=== PATIENT | female | born 1945 | race Caucasian/White ===

== ENCOUNTER → 2016-07-06 | Day surgery (SDC) | payer OTHER ==
[~2016-07-06] VITALS: Ht 165.1 cm; Wt 91.0 kg
[~2016-07-06] MED LIST: ACETAMINOPHEN 1000 MG/100 ML VIAL IV ONE; BUPIVACAINE HCL PF 0.5% 30 ML VIAL NERV BLOCK ONE; DEXT 5%-NACL 0.45% 1000 ML INJ 1,000 ML IV SCH; FAMOTIDINE 20 MG/2 ML VIAL ONE; IBUP800T23 PO; LACTATED RINGER'S 1000 ML INJ 1,000 ML ONE; MECL25CH CHEW; MIDAZOLAM HCL 5 MG/ML VIAL (1 ML) ONE; NORC5TAB PO; ONDANSETRON HCL 4 MG/2 ML VIAL IV PUSH ONE; PROPOFOL 200 MG/20 ML AMP IV ONE; SODIUM CHLORIDE 0.9% FLUSH 5 ML FLUSH IVF PRN; SODIUM CHLORIDE 0.9% FLUSH 5 ML FLUSH IVF SCH; ceFAZolin 2 GM PREMIX 50 ML ONE
[2016-07-06 07:37] VITALS: BP 135/85; PULSE 73; RESP 20; TEMP 97.7; O2SAT 96
[2016-07-06 07:57] LABS: HEMATOCRIT 41.5 % (35.0-46.0); MEAN CELL VOLUME 84.3 FL (80.0-100.0); MEAN CORPUSCULAR HEMOGLOBIN 27.6 PG (27.0-34.0); MEAN CORPUSCULAR HGB CONC 32.7 % (32.0-36.0); PLATELET COUNT 290 TH/MM3 (150-450); RED BLOOD COUNT 4.92 MIL/MM3 (4.00-5.30); RED CELL DISTRIBUTION WIDTH 13.5 % (11.6-17.2); REVIEW FLAG FINAL; WHITE BLOOD COUNT 6.9 TH/MM3 (4.0-11.0)
[2016-07-06 08:00] VITALS: PULSE 81
--- NOTE | 2016-07-06 08:05 | HP.UPD ---
H&P Update Date: Jul 06, 2016 Note The Pre-Admit History and Physical Examination regarding the above named patient was reviewed (including, but not limited to, vital signs, medications, allergies, co-morbid conditions), and upon re-examination it is noted that: Indicated with "X" x - the patient's condition has not significantly changed since the last examination. [] - the patient's condition has changed since the last examination. Changes: Gretel Borja MD Jul 06, 2016 08:04
[2016-07-06 08:15] VITALS: PULSE 78
--- NOTE | 2016-07-06 10:33 | HHI.PR ---
Immediate Post Op Note Procedure Date: Jul 06, 2016 Pre Op Diagnosis: (1) Primary osteoarthritis of left wrist Post Op Diagnosis: (1) Primary osteoarthritis of left wrist Surgeon: Gretel Borja MD Dye Tank Tender(s): Darrell Quinn PA-C Procedure: Interposition arthroplasty, left thumb CMC joint with tendon transfer. Complications: n/a Specimen(s) removed: n/a Estimated blood loss: n/a Anesthesia: General, Regional Block Drains: None Tourniquet time (min at mmHg) 84 minutes at 220mmHg Patient to: PACU Patient Condition: Good Date/Time of Procedure: SEE SURGICAL CARE RECORD Aide Quinn Jul 06, 2016 10:33
[2016-07-06 10:40] VITALS: PULSE 74
[2016-07-06 11:15] VITALS: TEMP 97.8
[2016-07-06 12:10] VITALS: BP 125/74; PULSE 64; RESP 14; O2SAT 96
--- NOTE | 2016-07-07 19:32 | EKG ---
Date Performed: 07/06/2016 Time Performed: 07:51:58 PTAGE: 70 years EKG: Sinus rhythm . Poor R wave progression - probable normal variant Borderline ECG NO PREVIOUS TRACING DOCTOR: Prem Gonzalez Interpretating Date/Time 07/07/2016 19:32:13
--- NOTE | 2016-07-08 18:19 | MP ---
cc: LUI BORJA M.D. 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 PROCEDURE Interposition arthroplasty of left thumb CMC joint with tendon transfer. ANESTHESIA General SURGEON Dr. Lui Borja MD BUSINESS SYSTEMS LEAD Darrell Quinn PA-C INDICATIONS A 70-year-old female with severe degenerative joint disease of the left thumb CMC joint. It is quite painful and did not respond to nonoperative intervention. FINDINGS At the completion of the procedure the carpal trapezium was removed and replaced with an anchovy as well the tendon transfer which was used to recreate the ligament between the thumb and index metacarpal. TOURNIQUET TIME 84 minutes at 220 mmHg. PROCEDURE The patient was seen preoperatively where the site and side were identified and marked. The patient was then taken to the operating room and placed in the supine position. Her identity was checked against the arm and then consent form, site and side confirmed. A time-out called prior to beginning the procedure. The left upper extremity was prepped with Hibiclens and draped in usual sterile fashion. The area be incised was outlined with a marking pen as a transverse incision at the dorsal base of the left thumb CMC joint. A transverse incision was designed at the most distal volar portion of the flexor carpi radialis and wrist and 10 cm proximal to this. The arm was then exsanguinated and the tourniquet inflated to 220 mmHg. A #15 blade was used make an incision at the base of the thumb, down through skin, down to the subcutaneous tissue. Under loupe magnification using spread technique superficial vessels and nerves were identified and retracted exposing the capsule. Adjacent tendons were identified and retracted. The capsule was then incised with a new 15 blade, exposing the carpal trapezium. This was then carefully from surrounding structures using sharp osteotome. The bone itself was then removed in piecemeal using a rongeur. Once this was completed the volar base of the thumb metacarpal was removed with a rongeur. A 4-mm hole was then drilled obliquely from the dorsal aspect of the metacarpal into the joint using sequentially larger drill bits. The area was then copiously irrigated with saline. A new 15 blade was then used to make the incision at the most distal volar portion of the flexor carpi radialis in the wrist and 10 cm proximal to this. Proximally the tendon was carefully from the muscle and incised on the ulnar 50%. A tendon passer was then passed from the distal incision which was made with #15 blade and blunt dissection was used to identify the tendon sheath which was then opened proximally and distally. The tendon passer was passed from distal to proximal and the tendon was stripped 50% down to the second wound and then passed into the original wound using a right-angle clamp. The fibers were all the way to the insertion of the flexor carpi radialis in the index metacarpal. The portion of the tendon which had been stripped, was then passed through the thumb metacarpal using a Powers passer. The thumb was then pulled distally and had adducted against the index metacarpal and the tendon was then sutured to itself using 3-0 Ethibond suture material. The remainder was then wrapped around the portion coming up from the index metacarpal. This was also secured with a 3-0 Ethibond. The wound was then irrigated with saline and the capsule was closed with the 3-0 Ethibond suture material. All wounds were then cleansed and the proximal and distal two wounds were approximated at the dermal layer with 4-0 Vicryl suture material. All wounds were then approximated using Dermabond. Once the glue had dried in several layers Steri-Strips were applied. The tourniquet was then released after 84 minutes of tourniquet time. Pressure was applied. After several minutes there was no evidence of any oozing or swelling and a dressing was applied using fluffy gauze, hand wrap, a thumb spica splint. The patient was then taken from the operating room to the recovery room in satisfactory condition having tolerated the procedure well. Postoperative instructions include keeping arm elevated, keeping it clean and dry and returning in several days for followup. The patient was given a prescription for ibuprofen and [place]. In addition the patient had an upper extremity block prior to the procedure for postoperative pain. MD DRE Bagley/LILIYA /10:41 AM /6:03 PM CONG
== END | disposition home or self-care (01) ==
LOC: PHSDC 06:58
PROVIDERS: ATTEND Specialist
DX: M18.12 Unilateral primary osteoarthritis of first carpometacarpal joint, left hand (principal); M19.032 Primary osteoarthritis, left wrist; R94.31 Abnormal electrocardiogram [ECG] [EKG]
CPT/HCPCS: 01830; 25310; 25447; 64415; 85027; 93005; J0131; J0690; J2250; J2405; J7120; L3808

== ENCOUNTER 2016-07-30 11:25 | Emergency (ER) | payer OTHER ==
[~2016-07-30] VITALS: Ht 165.1 cm; Wt 93.5 kg
[~2016-07-30 11:25] MED LIST changes: -ACETAMINOPHEN 1000 MG/100 ML VIAL IV ONE; -BUPIVACAINE HCL PF 0.5% 30 ML VIAL NERV BLOCK ONE; -DEXT 5%-NACL 0.45% 1000 ML INJ 1,000 ML IV SCH; -FAMOTIDINE 20 MG/2 ML VIAL ONE; -LACTATED RINGER'S 1000 ML INJ 1,000 ML ONE; -MECL25CH CHEW; -MIDAZOLAM HCL 5 MG/ML VIAL (1 ML) ONE; -ONDANSETRON HCL 4 MG/2 ML VIAL IV PUSH ONE; -PROPOFOL 200 MG/20 ML AMP IV ONE; -SODIUM CHLORIDE 0.9% FLUSH 5 ML FLUSH IVF PRN; -SODIUM CHLORIDE 0.9% FLUSH 5 ML FLUSH IVF SCH; -ceFAZolin 2 GM PREMIX 50 ML ONE
[2016-07-30 11:34] VITALS: BP 138/87; PULSE 73; RESP 16; TEMP 98.2; O2SAT 96
[2016-07-30] MEDS ORDERED: LORazepam 2 MG/ML VIAL IV PUSH ONE (12:00)
[2016-07-30] MEDS ORDERED: MECLIZINE HCL 25 MG TAB PO ONE (12:00)
[2016-07-30 12:38] LABS: AUTOMATED NEUTROPHIL # 3.4 TH/MM3 (1.8-7.7); BASOPHIL # 0.1 TH/MM3 (0-0.2); BASOPHIL % 1.1 % (0.0-2.0); EOSINOPHIL # 0.2 TH/MM3 (0-0.4); EOSINOPHIL % 3.1 % (0.0-4.0); HEMATOCRIT 38.5 % (35.0-46.0); HEMO FLAGS DIFF FINAL; LYMPH % 35.9 % (9.0-44.0); LYMPHOCYTE # 2.3 TH/MM3 (1.0-4.8); MEAN CELL VOLUME 83.1 FL (80.0-100.0); MEAN CORPUSCULAR HEMOGLOBIN 27.9 PG (27.0-34.0); MEAN CORPUSCULAR HGB CONC 33.6 % (32.0-36.0); MONO % 7.8 % (0.0-8.0); NEUT % 52.1 % (16.0-70.0); PLATELET COUNT 269 TH/MM3 (150-450); RED BLOOD COUNT 4.63 MIL/MM3 (4.00-5.30); RED CELL DISTRIBUTION WIDTH 12.4 % (11.6-17.2); WHITE BLOOD COUNT 6.5 TH/MM3 (4.0-11.0)
--- NOTE | 2016-07-30 12:44 | PD ---
HPI Chief Complaint: Dizziness Time Seen by Provider: 11:42 Travel History International Travel<30 days: No Contact w/Intl Traveler<30days: No Traveled to known affect area: No History of Present Illness HPI This is a 70-year-old female who presents to the emergency department having woken up in the middle of the night with severe dizziness described as feeling like the room was spinning, unable to keep her balance when she was walking to the bathroom. She says she has had recurrent episodes ever since. They last for about 30-40 seconds and then subside when she sits still. When she is not moving she doesn't feel dizzy. She denies any headache, vomiting, numbness or weakness. She has no history of diabetes, hypertension or hyperlipidemia. This is never happened to her before. PFSH Past Medical History Diabetes: No Diminished Hearing: No Musculoskeletal: Yes (OSTEOARTHRITIS L THUMB) Immunizations Current: Yes Tetanus Vaccination: Unknown Influenza Vaccination: No ?: Not Menopausal: Yes Past Surgical History Abdominal Surgery: Yes (APPENDECTOMY, CHOLECYSTECTOMY) AICD: No Appendectomy: Yes Cholecystectomy: Yes Joint Replacement: No Oral Surgery: Yes (TONSILLECTOMY, DENTAL) Pacemaker: No Tonsillectomy: Yes Social History Alcohol Use: No Tobacco Use: Yes (1 ppd) Substance Use: No Allergies-Medications (Allergen,Severity, Reaction): Coded Allergies: No Known Allergies (Verified , 07/30/16) Reported Meds & Prescriptions Reported Meds & Active Scripts Active No Active Prescriptions or Reported Medications Review of Systems Except as stated in HPI: all other systems reviewed are Neg Physical Exam Narrative GENERAL:Well appearing, no acute distress SKIN: Focused skin assessment warm and dry. HEAD: Atraumatic. Normocephalic. EYES: Pupils equal and round. No injection or drainage. ENT: Moist mucous membranes NECK: Trachea midline. CARDIOVASCULAR: Regular rate and rhythm. No murmur appreciated. RESPIRATORY: Clear to auscultation. Breath sounds equal bilaterally. GASTROINTESTINAL: Abdomen soft, non-tender, nondistended. MUSCULOSKELETAL: No obvious deformities. NEUROLOGICAL: Awake and alert. abnormal [place]-Hallpike to the left. No obvious cranial nerve deficits. No dysarthria or aphasia. No upper or lower extremity drift. No upper extremity ataxia. PSYCHIATRIC: Appropriate mood and affect; insight and judgment normal. Data Data Last Documented VS Vital Signs Date Time Temp Pulse Resp B/P Pulse Ox O2 Delivery O2 Flow Rate FiO2 07/30/16 12:05 Room Air 07/30/16 11:34 98.2 73 16 138/87 96 Orders Complete Blood Count With Diff (07/30/16 11:54) Comprehensive Metabolic Panel (07/30/16 11:54) Lorazepam Inj (Ativan Inj) (07/30/16 12:00) Meclizine (Antivert) (07/30/16 12:00) Labs Laboratory Tests Test 07/30/16 12:25 White Blood Count 6.5 TH/MM3 Red Blood Count 4.63 MIL/MM3 Hemoglobin 12.9 GM/DL Hematocrit 38.5 % Mean Corpuscular Volume 83.1 FL Mean Corpuscular Hemoglobin 27.9 PG Mean Corpuscular Hemoglobin 33.6 % Concent Red Cell Distribution Width 12.4 % Platelet Count 269 TH/MM3 Mean Platelet Volume 8.2 FL Neutrophils (%) (Auto) 52.1 % Lymphocytes (%) (Auto) 35.9 % Monocytes (%) (Auto) 7.8 % Eosinophils (%) (Auto) 3.1 % Basophils (%) (Auto) 1.1 % Neutrophils # (Auto) 3.4 TH/MM3 Lymphocytes # (Auto) 2.3 TH/MM3 Monocytes # (Auto) 0.5 TH/MM3 Eosinophils # (Auto) 0.2 TH/MM3 Basophils # (Auto) 0.1 TH/MM3 CBC Comment DIFF FINAL Differential Comment Sodium Level 143 MEQ/L Potassium Level 3.7 MEQ/L Chloride Level 108 MEQ/L Carbon Dioxide Level 26.9 MEQ/L Anion Gap 8 MEQ/L Blood Urea Nitrogen 18 MG/DL Creatinine 0.92 MG/DL Estimat Glomerular Filtration 61 ML/MIN Rate Random Glucose 97 MG/DL Calcium Level 8.8 MG/DL Total Bilirubin 0.4 MG/DL Aspartate Amino Transf 20 U/L (AST/SGOT) Alanine Aminotransferase 39 U/L (ALT/SGPT) Alkaline Phosphatase 70 U/L Total Protein 6.8 GM/DL Albumin 3.5 GM/DL [facility] Medical Decision Making Medical Screen Exam Complete: Yes Emergency Medical Condition: Yes Interpretation(s) Afebrile, no tachycardia, normotensive No leukocytosis Electrolytes are reassuring Differential Diagnosis Benign positional vertigo, stroke, TIA, labyrinthitis, vestibular neuritis Narrative Course This is a 70-year-old female who presents to the emergency department with dizziness. The dizziness only occurs when she moves and she is asymptomatic when she is resting. She has an abnormal [place]-Hallpike to the left. She has a normal neurologic exam with no ataxia, dysarthria or aphasia. I performed an Petra maneuver, and administered the patient Ativan and meclizine. She feels much better after treatment and is able to sit up in bed and move side to side without difficulty. I suspect this reflects benign positional paroxysmal vertigo. Patient will be discharged with meclizine and was told to follow up with her primary care physician in one week if her symptoms don't improve. I did consider stroke however given the patient's symptoms are intermittent, elicited by position, and she has normal neurologic exam I don't think further imaging is warranted at this time. Diagnosis Primary Impression: Benign paroxysmal positional vertigo of left ear Patient Instructions: General Instructions Additional Instructions: If you develop severe worsening headache, persistent vomiting, numbness, weakness, difficulty walking or difficulty talking return to the emergency department immediately. Med/Other Pt SpecificInfo: Prescription(s) given Scripts Meclizine 25 Mg Chew25 Mg CHEW Q6HR PRN (VERTIGO) #15 TAB Ref 0 Prov:Mercy Solomon MD 07/30/16 Disposition: 01 DISCHARGE HOME Condition: Stable Mercy Solomon MD July 30, 2016 12:44
[2016-07-30 12:50] LABS: CHLORIDE 108 MEQ/L (98-107); POTASSIUM 3.7 MEQ/L (3.5-5.1); SODIUM (NA) 143 MEQ/L (136-145)
[2016-07-30 12:54] LABS: ANION GAP 8 MEQ/L (5-15); BICARBONATE 26.9 MEQ/L (21.0-32.0); BLOOD UREA NITROGEN 18 MG/DL (7-18)
[2016-07-30 12:57] LABS: ALT (GPT) 39 U/L (10-53); AST (GOT) 20 U/L (15-37); GLOMERULAR FILTRATION RATE 61 ML/MIN (>89)
[2016-07-30 12:59] LABS: TOTAL BILIRUBIN ADULT 0.4 MG/DL (0.2-1.0)
[2016-07-30 13:00] LABS: ALKALINE PHOSPHATASE 70 U/L (45-117)
[2016-07-30] MEDS ORDERED: MECL25CH CHEW (13:10)
[2016-07-30 13:32] VITALS: BP 148/67
== END 2016-07-30 13:35 | disposition home or self-care (01) ==
LOC: PHED 11:25
DX: H81.12 Benign paroxysmal vertigo, left ear (principal); F17.210 Nicotine dependence, cigarettes, uncomplicated
CPT/HCPCS: 80053; 85025; 96374; 99284; J2060

== ENCOUNTER → 2017-01-28 | Outpatient (CLI) | payer OTHER ==
[~2017-01-28] MED LIST changes: +ASPI-146 PO; +COMMODE 3-IN-11 MIS; +ENOX40IN SQ; -IBUP800T23 PO; +MECL25CH CHEW; +MOBI15TA PO; +WALKER WHEELS/F1 MIS
== END ==
LOC: CPRE 11:57
PROVIDERS: ATTEND Orthopaedic Surgery
DX: M16.11 Unilateral primary osteoarthritis, right hip (principal)

== ENCOUNTER 2017-02-13 05:30 | Inpatient (IN) | payer OTHER, MEDICARE ==
[~2017-02-13] VITALS: Ht 165.1 cm; Wt 92.7 kg
[~2017-02-13 05:30] MED LIST changes: -ASPI-146 PO; -COMMODE 3-IN-11 MIS; -ENOX40IN SQ; -MECL25CH CHEW; -NORC5TAB PO; -WALKER WHEELS/F1 MIS
[2017-02-13] MEDS ORDERED: POVIDONE IODINE 5% (ANTISEPSIS KIT) 4 APPLICATIONS EACH NARE PRN (06:15)
[2017-02-13] MEDS ORDERED: SODIUM CHLORID 0.9% 500 ML IV PRN (06:15)
[2017-02-13] MEDS ORDERED: EXPAREL PERI-ARTICULAR INJECTION (TOTAL VOL. 60 ML) P-ARTICULR SCH ×2 (06:15)
[2017-02-13] MEDS ORDERED: CHLORHEXIDINE GLUCONATE 2 % 1 PACK (2 CLOTHS) TOPICAL PRN (06:15)
[2017-02-13] MEDS ORDERED: LACTATED RINGER'S 1000 ML IV PRN (06:15)
[2017-02-13] MEDS ORDERED: DEXAMETHASONE SOD PHOS 20 MG/5 ML VIAL IV SCH (06:15)
[2017-02-13] MEDS ORDERED: TRANEXAMIC ACID IV SCH ×2 (06:15→10:00)
[2017-02-13] MEDS ORDERED: VANCOMYCIN 1000 MG/NS 250 ML (for <70 kg) IV SCH ×2 (06:15)
[2017-02-13] MEDS ORDERED: METOPROLOL TARTRATE 25 MG TAB PO PRN (06:15)
[2017-02-13] MEDS ORDERED: POVIDONE IODINE 7.5% SCRUB 118 ML BOTTLE TOPICAL SCH (06:15)
[2017-02-13] MEDS ORDERED: SODIUM CHLORIDE 0.9% IV SCH ×2 (06:15→10:00)
[2017-02-13] MEDS ORDERED: ceFAZolin 2 GM PREMIX 50 ML IV SCH (06:15)
--- NOTE | 2017-02-13 06:47 | HHI.DCPOC ---
Discharge Care Plan Diagnosis: (1) Osteoarthritis of right hip (2) Status post total hip replacement, right Your Health Problems Are: Difficulty with ADL Goals to Promote Your Health * To prevent worsening of your condition and complications * To maintain your health at the optimal level Directions to Meet Your Goals Take your medications as prescribed Follow your dietary instruction Follow activity as directed Keep your appointments as scheduled Take your immunizations and boosters as scheduled If your symptoms worsen call your PCP, if no PCP go to Urgent Care Center or Emergency Room Smoking is Dangerous to Your Health. Avoid second hand smoke Call the 24-hour hour crisis hotline for domestic abuse at Volodymyr Stewart Feb 13, 2017 06:47
--- NOTE | 2017-02-13 06:48 | HHI.FF ---
Face to Face Verification Diagnosis: (1) Osteoarthritis of right hip (2) Status post total hip replacement, right Physical Therapy Gait training, Transfer training, bed to chair Hip: Total hip Right LE Weight Bearing: WB as tolerated Right LE Range of Motion: Active ROM Nursing Nursing: Homero kim Dressing Changes: Do not change dressing Additional Instructions First dressing change in office I have seen patient Tracey Diamond on 02/13/17. My clinical findings support the need for the requested home health care services because: Limited ability to care for self High risk of falls I certify that my clinical findings support that this patient is homebound because: Post-op weakness Unsteady gait/balance Volodymyr Stewart Feb 13, 2017 06:48
[2017-02-13] MEDS ORDERED: COMMODE 3-IN-11 MIS (06:50)
[2017-02-13] MEDS ORDERED: WALKER WHEELS/F1 MIS (06:50)
[2017-02-13] MEDS ORDERED: GENTAMICIN SULFATE 80 MG/2 ML VIAL IRRIGATION ONE (07:40)
--- NOTE | 2017-02-13 08:57 | PD.OP ---
cc: Jf Sanchez MD Operative Report Date of Surgery: Feb 13, 2017 Preoperative Diagnosis: Right hip severe osteoarthritis Postoperative Diagnosis: Same Procedure: Right total hip arthroplasty Anesthesia: Gen. Surgeon: Jf Sanchez Grounds Person(s): RUDI Phipps The surgical procedure was assisted by my Advanced Registered Nurse Practitioner. My FIRE PILOT presence was necessary throughout this case for the manipulation and positioning of the surgical extremity. My FIRE PILOT was assisting me throughout the duration of this procedure. The skill set of an Advance Registered Nurse Practitioner was medically necessary to complete this procedure. During the surgical case, the manager surgical was working at the back table and the Advance Registered Nurse Practitioner was directly assisting me. Operation and Findings: IMPLANT DESCRIPTION: 1. [place] Gription Cup, acetabular size 50. 2. [place] AltrX polyethylene, neutral. 4. [place] femoral stem size , with collar, KLA high offset, size 9. 5. Femoral head/neck metal, 32, +5. ESTIMATED BLOOD LOSS: 300 cc. JUSTIFICATION FOR PROCEDURE: The patient has end-stage osteoarthritis to the hip. There is an attached conservative measures pathway form in the chart that describes the nonoperative measures that were undertaken prior to consideration of surgical management. The patient understood the risks and benefits of surgical management. See my office notes for further details. PROCEDURE: The patient was brought back to the operative theatre. Adequate anesthesia was obtained. The patient received intravenous vancomycin and Ancef. The patient was carefully placed on the operative table. The lower extremity was prepped and draped in the usual sterile fashion. Fluoroscopic images were obtained. We made a standard anterior incision over the hip. We dissected through the TFL fascia, exposing the anterior capsule. Arthrotomy was performed in a T-shaped fashion. The capsule was tagged with a #2 FiberWire. End-stage arthritis was identified. Osteotomy was performed through the femoral neck exposing the acetabulum. Remnants of the labrum were resected and osteophytes were removed. We sequentially reamed the acetabulum. We trialed the hip and placed the final cup into position. This was done under fluoroscopic guidance to obtain the appropriate inclination and anteversion. A manhole cover was placed into the acetabular component. We then placed the final polyethylene into position and confirmed that it was well seated. Capsular attachments on the calcar and the inner aspect of the greater trochanter were resected. On the proximal aspect of the femur we used a rongeur , box osteotome, canal finder, sequential broaches and lateralizing rasp. We calcar planed the proximal femur. Then thoroughly irrigated the wound. We trialed the hip with the appropriate size stem. We placed the final stem in to position and trialed again. The hip was stable while it was externally rotated 70 degrees when the leg was lowered to the floor. The final head was applied, and final fluoroscopic images were obtained. The wound was thoroughly irrigated again. Interarticular injection of liposomal bupivacaine was given. The capsule was closed with #2 FiberWire and #1 Vicryl. The deep fascia was closed with a #2 Stratafix, followed by 2-0 Vicryl in the skin and Dermabond dressing. Postop plan is to weight-bear as tolerated. DVT prophylaxis will be performed with Alice, PEGGY carter, early mobilization, and Lovenox followed by aspirin. Jf Sanchez MD Feb 13, 2017 08:57
[2017-02-13] MEDS ORDERED: NORC5TAB PO (08:59)
[2017-02-13] MEDS ORDERED: ASPI-146 PO (08:59)
[2017-02-13] MEDS ORDERED: ENOX40IN SQ (08:59)
[2017-02-13] MEDS ORDERED: ACETAMINOPHEN/HYDROcodone 325 MG/5 MG TAB PO PRN (09:00)
[2017-02-13] MEDS ORDERED: ZOLPIDEM TARTRATE 5 MG TAB PO PRN (09:00)
[2017-02-13] MEDS ORDERED: ALUMINUM/MAGNESIUM/SIMETH 30 ML CUP PO PRN (09:00)
[2017-02-13] MEDS ORDERED: diphenhydrAMINE HCL 50 MG/ML VIAL IV PUSH PRN (09:00)
[2017-02-13] MEDS ORDERED: BISACODYL 10 MG SUPP RECTAL PRN (09:00)
[2017-02-13] MEDS ORDERED: NALOXONE HCL 0.4 MG/ML AMP IV PUSH PRN (09:00)
[2017-02-13] MEDS ORDERED: ONDANSETRON HCL 4 MG/2 ML VIAL IVP PRN (09:00)
[2017-02-13] MEDS ORDERED: MAGNESIUM HYDROXIDE SUSP 30 ML CUP PO PRN (09:00)
[2017-02-13] MEDS ORDERED: MORPHINE SULFATE 4 MG/ML INJ IV PUSH PRN (09:00)
[2017-02-13] MEDS ORDERED: Post-op Orders (for Pharmacy) MISC XX ONE (09:00)
--- NOTE | 2017-02-13 09:09 | RADRPT ---
EXAM DATE/TIME: 02/13/2017 07:18 [facility] COMPARISON: No previous studies available for comparison. INDICATIONS : Post-op total right hip arthroplasty. MEDICAL HISTORY : None. SURGICAL HISTORY : None. ENCOUNTER: Initial ACUITY: 1 day PAIN SCORE: Non-responsive. LOCATION: Right hip. FINDINGS: A two view examination of the right hip was performed. Postsurgical changes following total hip repla cement noted. Femoral and acetabular components are well seated and satisfactorily aligned. There is no evidence of acute fracture. CONCLUSION: Satisfactory postoperative appearance of the right hip status post hip replacement. Neil Salazar MD on February 13, 2017 at 9:07 Board Certified Radiologist. This report was verified electronically.
[2017-02-13] MEDS ORDERED: DO NOT ADM ANY ANTICOAGULANT DRUGS PRN (09:24)
[2017-02-13] MEDS: SODIUM CHLOR 0.9% 1000 ML INJ 1,000 ML IV SCH ×3 (10:00→23:51)
--- NOTE | 2017-02-13 10:41 | RADRPT ---
EXAM DATE/TIME: 02/13/2017 09:38 [facility] COMPARISON: No previous studies available for comparison. INDICATIONS : Post op right hip surgery. MEDICAL HISTORY : None. SURGICAL HISTORY : None. ENCOUNTER: Initial ACUITY: 1 day PAIN SCORE: Non-responsive. LOCATION: Right hip and pelvis FINDINGS: Post surgical changes following right hip replacement are noted. Acetabular and femoral components ar e well seated and satisfactorily aligned. Bony pelvis is intact. Mild to moderate left arthropathy is noted. CONCLUSION: Satisfactory postoperative appearance of the right hip following total hip replacement. No acute bony abnormality noted. Neil Salazar MD on February 13, 2017 at 10:38 Board Certified Radiologist. This report was verified electronically.
[2017-02-13] MEDS ORDERED: LIDOCAINE HCL 1% PF 5 ML SYRINGE OTHER ONE (12:00)
[2017-02-13] MEDS ORDERED: MIDAZOLAM HCL 2 MG/2 ML VIAL IV ONE (12:00)
[2017-02-13] MEDS ORDERED: MORPHINE SULFATE 4 MG/ML INJ IV ONE (12:00)
[2017-02-13] MEDS ORDERED: PROPOFOL 200 MG/20 ML AMP IV ONE (12:00)
[2017-02-13] MEDS ORDERED: ROCURONIUM INJ 50 MG/5 ML SYRINGE IV PUSH ONE (12:00)
[2017-02-13] MEDS ORDERED: ONDANSETRON HCL 4 MG/2 ML VIAL IV ONE (12:00)
[2017-02-13 13:36] VITALS: BP 137/79; PULSE 98; RESP 18; TEMP 98; O2SAT 95
[2017-02-13] MEDS ORDERED: PROMETHAZINE HCL 25 MG TAB PO PRN (15:15)
[2017-02-13] MEDS ORDERED: METOCLOPRAMIDE HCL 10 MG/2 ML VIAL IV PUSH PRN (15:15)
--- NOTE | 2017-02-13 15:16 | PD.CONS ---
[facility] Reason for Consult medical management Primary Care Physician Lavelle Antoine MD Diagnoses: (1) Benign paroxysmal positional vertigo of left ear (2) Osteoarthritis of right hip (3) Primary osteoarthritis of left wrist (4) Status post total hip replacement, right History of Present Illness Patient is a pleasant 71 yo F without significant PMH except osteoarthritis. Patient came for elective right hops surgery by Dr Sanchez. The patient was seen in the room after the surgery. She is nauseated and vomited 3 times nonbloody nonbilious. Received Zofran however still with nausea and vomiting at this time. No fever. Denies chest pain shortness of breath. No abd pain or suprapubic pain, no urinary complaints. Review of Systems Except as stated in HPI: all other systems reviewed are Neg Past Family Social History Allergies: Coded Allergies: No Known Allergies (Verified Allergy, Unknown, 02/13/17) Past Medical History Osteoarthritis Past Surgical History Appendectomy Tonsillectomy Cholecystomy Right hand surgery Right knee lap surgery Reported Medications Last Impressions Hip and Pelvis X-Ray 02/13/17 0851 Signed Impressions: Service Date/Time: Monday, February 13, 2017 09:38 - CONCLUSION: Satisfactory postoperative appearance of the right hip following total hip replacement. No acute bony abnormality noted. Neil Salazar MD Hip X-Ray 02/13/17 0000 Signed Impressions: Service Date/Time: Monday, February 13, 2017 07:18 - CONCLUSION: Satisfactory postoperative appearance of the right hip status post hip replacement. Neil Salazar MD Family History cancer runs in family Social History Smoking 1 cigarette per day currently, used to smoke a quarter pack per week. No alcohol use or illicit drug use Physical Exam Vital Signs Vital Signs Date Time Temp Pulse Resp B/P (MAP) Pulse Ox O2 Delivery O2 Flow Rate FiO2 02/13/17 13:25 98.1 98 20 114/58 (76) 97 Nasal Cannula 2 02/13/17 12:30 99 20 120/68 (85) 97 Nasal Cannula 2 02/13/17 11:30 98 20 105/59 (74) 97 Nasal Cannula 2 02/13/17 10:30 101 20 109/58 (75) 95 Nasal Cannula 2 02/13/17 10:15 109 20 109/59 (76) 95 Nasal Cannula 2 02/13/17 10:00 102 20 116/72 (87) 96 Nasal Cannula 2 02/13/17 09:45 110 20 115/58 (77) 95 Nasal Cannula 2 02/13/17 09:25 97.4 114 20 131/69 (89) 95 Nasal Cannula 2 02/13/17 05:59 98.4 86 18 165/86 (112) 98 Physical Exam GENERAL: This is a well-nourished, well-developed patient, in some distress 2/2 nausea. SKIN: No rashes, ecchymoses or lesions. Cool and dry. HEAD: Atraumatic. Normocephalic. No temporal or scalp tenderness. EYES: Pupils equal round and reactive. Extraocular motions intact. No scleral icterus. No injection or drainage. ENT: Nose without bleeding, purulent drainage or septal hematoma. Throat without erythema, tonsillar hypertrophy or exudate. Uvula midline. Airway patent. NECK: Trachea midline. No JVD or lymphadenopathy. Supple, nontender, no meningeal signs. CARDIOVASCULAR: Regular rate and rhythm without murmurs, gallops, or rubs. RESPIRATORY: Clear to auscultation. Breath sounds equal bilaterally. No wheezes , rales, or rhonchi. GASTROINTESTINAL: Abdomen soft, non-tender, nondistended. No hepato-splenomegaly , or palpable masses. No guarding. MUSCULOSKELETAL: S/P left hip surgery dressing in place c/d/di. Extremities without clubbing, cyanosis, or edema. No joint tenderness, effusion, or edema noted. No calf tenderness. Negative Homans sign bilaterally. NEUROLOGICAL: Awake and alert. Cranial nerves II through XII intact. Motor and sensory grossly within normal limits. Five out of 5 muscle strength in all muscle groups. Normal speech. Imaging Last Impressions Hip and Pelvis X-Ray 02/13/17 0851 Signed Impressions: Service Date/Time: Monday, February 13, 2017 09:38 - CONCLUSION: Satisfactory postoperative appearance of the right hip following total hip replacement. No acute bony abnormality noted. Neil Salazar MD Hip X-Ray 02/13/17 0000 Signed Impressions: Service Date/Time: Monday, February 13, 2017 07:18 - CONCLUSION: Satisfactory postoperative appearance of the right hip status post hip replacement. Neil Salazar MD Assessment and Plan Assessment and Plan Pleasant 71-year-old female with Osteoarthritis left knee status post Left total hip arthroplasty by Dr. Sanchez Management per orthopedic doctor Pain management per orthopedics Antiemetics, laxatives/stool. Nurse as need. Add Zofran and Phenergan as patient with intractable nausea and vomiting Resume home medications as appropriate Monitor H&H Monitor vital signs DVT prophylaxis per surgeon Thank you for this consultation we'll follow along Discussed Condition With Patient, nurse, family at bedside Problem Qualifiers (1) Osteoarthritis of right hip: Qualified Codes: M16.11 - Unilateral primary osteoarthritis, right hip Nicky Khan MD Feb 13, 2017 15:16
[2017-02-13 21:39] VITALS: BP 125/62; PULSE 97; RESP 16; TEMP 98.8; O2SAT 97
[2017-02-14] VITALS (7 sets, daily range): BP systolic 107–142; BP diastolic 65–74; PULSE 70–101; RESP 16–18; TEMP 96.4–99.2; O2SAT 96–99
[2017-02-14] MEDS ORDERED: DEXAMETHASONE SOD PHOS 20 MG/5 ML VIAL IV ONE (07:45)
[2017-02-14] MEDS: ACETAMINOPHEN/HYDROcodone 325 MG/5 MG TAB PO PRN ×3 (08:06→17:08)
[2017-02-14] MEDS: ENOXAPARIN SODIUM 40 MG/0.4 ML SYRINGE SQ SCH (08:06)
[2017-02-14 09:43] LABS: HEMATOCRIT 30.5 % (35.0-46.0); MEAN CELL VOLUME 84.3 FL (80.0-100.0); MEAN CORPUSCULAR HEMOGLOBIN 28.4 PG (27.0-34.0); MEAN CORPUSCULAR HGB CONC 33.7 % (32.0-36.0); PLATELET COUNT 205 TH/MM3 (150-450); RED BLOOD COUNT 3.61 MIL/MM3 (4.00-5.30); RED CELL DISTRIBUTION WIDTH 13.4 % (11.6-17.2); REVIEW FLAG FINAL; WHITE BLOOD COUNT 9.4 TH/MM3 (4.0-11.0)
--- NOTE | 2017-02-14 10:44 | HHI.PR ---
Subjective Remarks Feels much better, ambulating with physical therapy. No nausea or vomiting. She was able to eat and keep down food. No fever or chills denies chest pain shortness of breath Objective Vitals Vital Signs Date Time Temp Pulse Resp B/P (MAP) Pulse Ox O2 Delivery O2 Flow Rate FiO2 02/14/17 08:14 Room Air 02/14/17 08:00 96.4 98 16 125/71 (89) 99 02/14/17 04:59 98.1 70 16 116/65 (82) 96 02/14/17 00:54 97.6 101 18 107/65 (79) 96 02/13/17 21:39 98.8 97 16 125/62 (83) 97 02/13/17 13:36 98.0 98 18 137/79 (98) 95 02/13/17 13:25 98.1 98 20 114/58 (76) 97 Nasal Cannula 2 02/13/17 12:30 99 20 120/68 (85) 97 Nasal Cannula 2 02/13/17 11:30 98 20 105/59 (74) 97 Nasal Cannula 2 I/O 02/13/17 02/13/17 02/13/17 02/14/17 02/14/17 02/14/17 07:00 15:00 23:00 07:00 15:00 23:00 Intake Total 1980 ml Output Total 300 ml Balance 1680 ml Intake Oral 480 ml IV Total 1500 ml Output Estimated Blood Loss 300 ml # Voids 1 Result Diagram: 02/14/17 0926 Imaging Last Impressions Hip and Pelvis X-Ray 02/13/17 0851 Signed Impressions: Service Date/Time: Monday, February 13, 2017 09:38 - CONCLUSION: Satisfactory postoperative appearance of the right hip following total hip replacement. No acute bony abnormality noted. Neil Salazar MD Hip X-Ray 02/13/17 0000 Signed Impressions: Service Date/Time: Monday, February 13, 2017 07:18 - CONCLUSION: Satisfactory postoperative appearance of the right hip status post hip replacement. Neil Salazar MD Objective Remarks GENERAL: This is a well-nourished, well-developed patient, in nad SKIN: No rashes, ecchymoses or lesions. Cool and dry. HEAD: Atraumatic. Normocephalic. No temporal or scalp tenderness. EYES: Pupils equal round and reactive. Extraocular motions intact. No scleral icterus. No injection or drainage. ENT: Nose without bleeding, purulent drainage or septal hematoma. Throat without erythema, tonsillar hypertrophy or exudate. Uvula midline. Airway patent. NECK: Trachea midline. No JVD or lymphadenopathy. Supple, nontender, no meningeal signs. CARDIOVASCULAR: Regular rate and rhythm without murmurs, gallops, or rubs. RESPIRATORY: Clear to auscultation. Breath sounds equal bilaterally. No wheezes , rales, or rhonchi. GASTROINTESTINAL: Abdomen soft, non-tender, nondistended. No hepato-splenomegaly , or palpable masses. No guarding. MUSCULOSKELETAL: S/P left hip surgery dressing in place c/d/di. Extremities without clubbing, cyanosis, or edema. No joint tenderness, effusion, or edema noted. No calf tenderness. Negative Homans sign bilaterally. NEUROLOGICAL: Awake and alert. Cranial nerves II through XII intact. Motor and sensory grossly within normal limits. Five out of 5 muscle strength in all muscle groups. Normal speech. A/P Problem List: (1) Benign paroxysmal positional vertigo of left ear ICD Code: H81.12 - Benign paroxysmal vertigo, left ear Status: Acute (2) Osteoarthritis of right hip ICD Code: M16.11 - Unilateral primary osteoarthritis, right hip (3) Primary osteoarthritis of left wrist ICD Code: M19.032 - Primary osteoarthritis, left wrist Status: Acute (4) Status post total hip replacement, right ICD Code: Z96.641 - Presence of right artificial hip joint Assessment and Plan Pleasant 71-year-old female with Osteoarthritis left knee status post Left total hip arthroplasty by Dr. Sanchez Management per orthopedic doctor Pain management per orthopedics Nausea/vomiting resolved. Antiemetics, laxatives/stool, Zofran and Phenergan as patient Resume home medications as appropriate Monitor H&H Monitor vital signs DVT prophylaxis per surgeon Thank you for this consultation we'll follow along Discussed Condition With Patient, nurse appears stable medically at this time Problem Qualifiers (1) Osteoarthritis of right hip: Qualified Codes: M16.11 - Unilateral primary osteoarthritis, right hip Nicky Khan MD Feb 14, 2017 10:44
--- NOTE | 2017-02-14 12:39 | PD.ORT.PN ---
Subjective Post Op Day #: 1 Subjective Remarks Patient is OOB in chair with mild to moderate right hip pain. Patient has been ambulatory and is unsure if she is ready for discharge home with home health today or tomorrow. Objective Vitals Vital Signs Date Time Temp Pulse Resp B/P (MAP) Pulse Ox O2 Delivery O2 Flow Rate FiO2 02/14/17 08:14 Room Air 02/14/17 08:00 96.4 98 16 125/71 (89) 99 02/14/17 04:59 98.1 70 16 116/65 (82) 96 02/14/17 00:54 97.6 101 18 107/65 (79) 96 02/13/17 21:39 98.8 97 16 125/62 (83) 97 02/13/17 13:36 98.0 98 18 137/79 (98) 95 02/13/17 13:25 98.1 98 20 114/58 (76) 97 Nasal Cannula 2 I/O 02/13/17 02/13/17 02/13/17 02/14/17 02/14/17 02/14/17 07:00 15:00 23:00 07:00 15:00 23:00 Intake Total 1980 ml Output Total 300 ml Balance 1680 ml Intake Oral 480 ml IV Total 1500 ml Output Estimated Blood Loss 300 ml # Voids 1 Result Diagram: 02/14/17 0926 Procedures Right CARLOS Objective Remarks The patient's dressing is C/D/I. EHL/TA/G intact. 2+ pedal pulse. Calf is soft and nontender. + SILT. Assessment & Plan Ortho Post Op Day #: 1 Problem List: Assessment and Plan POD #1: Right CARLOS 1. Lovenox followed by ASA for DVT prophylaxis 2. WBAT RLE 3. Ice to the right hip PRN 4. Stable for discharge home with home health today or tomorrow. 5. F/U with Dr. Sanchez or Leonides GRIJALVA in the office as previously scheduled. Volodymyr Stewart Feb 14, 2017 12:39
[2017-02-14] MEDS: SODIUM CHLOR 0.9% 1000 ML INJ 1,000 ML IV SCH (14:51)
[2017-02-14] MEDS: MULTIVITAMINS/MINERALS THERAPEUTIC TAB PO SCH (20:58)
[2017-02-14] MEDS: DOCUSATE SODIUM 100 MG CAP PO SCH (20:58)
[2017-02-15] VITALS: BP 139/83; PULSE 84; RESP 18; TEMP 98.4; O2SAT 97
[2017-02-15] MEDS: SODIUM CHLOR 0.9% 1000 ML INJ 1,000 ML IV SCH (00:51)
[2017-02-15 07:40] VITALS: BP 133/80; PULSE 91; RESP 17; TEMP 98.1; O2SAT 95
[2017-02-15 08:24] LABS: MEAN CELL VOLUME 83.2 FL (80.0-100.0); MEAN CORPUSCULAR HEMOGLOBIN 28.3 PG (27.0-34.0); PLATELET COUNT 213 TH/MM3 (150-450); RED BLOOD COUNT 3.36 MIL/MM3 (4.00-5.30); RED CELL DISTRIBUTION WIDTH 13.2 % (11.6-17.2); REVIEW FLAG FINAL; WHITE BLOOD COUNT 11.3 TH/MM3 (4.0-11.0)
[2017-02-15] MEDS: DOCUSATE SODIUM 100 MG CAP PO SCH (08:48)
[2017-02-15] MEDS: ENOXAPARIN SODIUM 40 MG/0.4 ML SYRINGE SQ SCH (08:48)
[2017-02-15] MEDS: MULTIVITAMINS/MINERALS THERAPEUTIC TAB PO SCH (08:48)
[2017-02-15] MEDS: ACETAMINOPHEN/HYDROcodone 325 MG/5 MG TAB PO PRN (08:49)
--- NOTE | 2017-02-15 08:52 | HHI.PR ---
Subjective Remarks Eating breakfast. Pain is controlled by meds. Did not have a BM yet will add lactulose. No n/v/d/c. Denies chest pain or sob. Tolerates well PT and plan to go home today after has a BM Objective Vitals Vital Signs Date Time Temp Pulse Resp B/P (MAP) Pulse Ox O2 Delivery O2 Flow Rate FiO2 02/15/17 07:40 98.1 91 17 133/80 (97) 95 02/15/17 00:00 98.4 84 18 139/83 (101) 97 02/14/17 21:25 21 02/14/17 21:00 Room Air 02/14/17 20:00 98.0 90 17 120/74 (89) 96 02/14/17 16:00 96.4 99 16 142/74 (96) 97 02/14/17 14:41 98 02/14/17 12:00 99.2 76 16 120/73 (89) 99 I/O 02/14/17 02/14/17 02/14/17 02/15/17 02/15/17 02/15/17 07:00 15:00 23:00 07:00 15:00 23:00 Intake Total 1320 ml 480 ml Balance 1320 ml 480 ml Intake Oral 1320 ml 480 ml # Voids 3 1 Result Diagram: 02/15/17 0750 Imaging Last Impressions Hip and Pelvis X-Ray 02/13/17 0851 Signed Impressions: Service Date/Time: Monday, February 13, 2017 09:38 - CONCLUSION: Satisfactory postoperative appearance of the right hip following total hip replacement. No acute bony abnormality noted. Neil Salazar MD Hip X-Ray 02/13/17 0000 Signed Impressions: Service Date/Time: Monday, February 13, 2017 07:18 - CONCLUSION: Satisfactory postoperative appearance of the right hip status post hip replacement. Neil Salazar MD Objective Remarks GENERAL: This is a well-nourished, well-developed patient, in nad SKIN: No rashes, ecchymoses or lesions. Cool and dry. HEAD: Atraumatic. Normocephalic. No temporal or scalp tenderness. EYES: Pupils equal round and reactive. Extraocular motions intact. No scleral icterus. No injection or drainage. ENT: Nose without bleeding, purulent drainage or septal hematoma. Throat without erythema, tonsillar hypertrophy or exudate. Uvula midline. Airway patent. NECK: Trachea midline. No JVD or lymphadenopathy. Supple, nontender, no meningeal signs. CARDIOVASCULAR: Regular rate and rhythm without murmurs, gallops, or rubs. RESPIRATORY: Clear to auscultation. Breath sounds equal bilaterally. No wheezes , rales, or rhonchi. GASTROINTESTINAL: Abdomen soft, non-tender, nondistended. No hepato-splenomegaly , or palpable masses. No guarding. MUSCULOSKELETAL: S/P left hip surgery dressing in place c/d/di. Extremities without clubbing, cyanosis, or edema. No joint tenderness, effusion, or edema noted. No calf tenderness. Negative Homans sign bilaterally. NEUROLOGICAL: Awake and alert. Cranial nerves II through XII intact. Motor and sensory grossly within normal limits. Five out of 5 muscle strength in all muscle groups. Normal speech. A/P Problem List: (1) Benign paroxysmal positional vertigo of left ear ICD Code: H81.12 - Benign paroxysmal vertigo, left ear Status: Acute (2) Osteoarthritis of right hip ICD Code: M16.11 - Unilateral primary osteoarthritis, right hip (3) Primary osteoarthritis of left wrist ICD Code: M19.032 - Primary osteoarthritis, left wrist Status: Acute (4) Status post total hip replacement, right ICD Code: Z96.641 - Presence of right artificial hip joint Assessment and Plan Pleasant 71-year-old female with Osteoarthritis left knee status post Left total hip arthroplasty by Dr. Sanchez Management per orthopedic doctor Pain management per orthopedics Nausea/vomiting resolved. Antiemetics, laxatives/stool, Zofran and Phenergan as patient Resume home medications as appropriate Monitor H&H Monitor vital signs Constipation on bowel regimen, add lactulose DVT prophylaxis per surgeon Thank you for this consultation we'll follow along Discussed Condition With Patient, nurse appears stable medically at this time, can DC after has a BM Problem Qualifiers (1) Osteoarthritis of right hip: Qualified Codes: M16.11 - Unilateral primary osteoarthritis, right hip Nicky Khan MD Feb 15, 2017 08:52
[2017-02-15] MEDS ORDERED: LACTULOSE SYRUP 20 GM/30 ML CUP PO ONE (09:45)
--- NOTE | 2017-02-15 23:23 | HHI.DS ---
Discharge Summary Admission Date Feb 13, 2017 at 05:30 Discharge Date: Feb 15, 2017 Admitting Diagnosis OA of the right hip Status post total hip replacement, right Diagnosis: (1) Primary osteoarthritis of left wrist Diagnosis: Principal ICD Codes: M19.032 - Primary osteoarthritis, left wrist Status: Acute (2) Status post total hip replacement, right Diagnosis: Principal ICD Codes: Z96.641 - Presence of right artificial hip joint Procedures Right CARLOS Brief History This is a 71 year old female patient with severe OA of the right hip CBC/BMP: 02/15/17 0750 Significant Findings Laboratory Tests Test 02/14/17 09:26 02/15/17 07:50 Red Blood Count 3.61 MIL/MM3 (4.00-5.30) 3.36 MIL/MM3 (4.00-5.30) Hemoglobin 10.2 GM/DL (11.6-15.3) 9.5 GM/DL (11.6-15.3) Hematocrit 30.5 % (35.0-46.0) 28.0 % (35.0-46.0) White Blood Count 11.3 TH/MM3 (4.0-11.0) PE at Discharge The patient's dressing is C/D/I. EHL/TA/G intact. 2+ pedal pulse. Calf is soft and nontender. + SILT. Hospital Course The patient was admitted to the hospital for severe OA of the right hip to have a right CARLOS. The patient's surgery went well with no complications. The patient is WBAT. The patient was placed on Lovenox followed by ASA for DVT prophylaxis. The patient is on a regular diet. The patient was discharged home with home health and will f/u with Dr. Sanchez or RUDI Evans as previously scheduled. Pt Condition on Discharge: Stable Discharge Disposition: Disch w/ Home Health Serv Discharge Instructions Diet Instructions: As Tolerated, No Restrictions Activities You Can Perform: Weight Bearing as Tone Activities to Avoid: Strenuous Activity Follow up Referrals: Orthopedics with Jf Sanchez MD SN[facility]/ with N[employer]SE [employer] - [phone] New Medications: Aspirin (Ecotrin Regular Strength) 325 Mg Tabdr 325 MG PO DAILY for Prevent Blood Clot, #30 TAB 0 Refills Start Aspirin after Lovenox is completed. Commode 3-in-1 (Commode 3-in-1) 1 Mis Mis EA .ROUTE DIRECTED, #1 0 Refills Enoxaparin Inj (Enoxaparin Inj) 40 Mg/0.4 Ml Syr 40 MG SQ DAILY for Blood Clot Prevention, #10 SYRINGE 0 Refills Start Aspirin after Lovenox is completed. Hydrocodone-Acetaminophen ([place]) 5 Mg-325 Mg Tab 1-2 TAB PO Q4H PRN for PAIN, #60 TAB 0 Refills Walker with Front Wheels (Walker with Front Wheels) 1 Mis Mis EA .ROUTE DIRECTED, #1 0 Refills Discontinued Medications: Meloxicam (Mobic) 15 Mg Tab 15 MG PO DAILY, TAB 0 Refills Volodymyr Stewart Feb 15, 2017 23:23
== END 2017-02-15 10:51 | disposition home health service (06) | DRG 470 ==
LOC: HSDI 05:30 → N06A 13:37
PROVIDERS: ADMIT Orthopaedic Surgery; ATTEND Orthopaedic Surgery
PROC: 0SR902A Replacement of Right Hip Joint with Metal on Polyethylene Synthetic Substitute, Uncemented, Open Approach (ICD-10-PCS; principal; 2017-02-13 06:44)
DX: M16.11 Unilateral primary osteoarthritis, right hip (principal); Z96.642 Presence of left artificial hip joint; F17.210 Nicotine dependence, cigarettes, uncomplicated; H81.12 Benign paroxysmal vertigo, left ear; M19.032 Primary osteoarthritis, left wrist; R11.2 Nausea with vomiting, unspecified; K59.00 Constipation, unspecified
CPT/HCPCS: 73502; 76000; 85027; 86850; 86900; 86901; C1776; C9290; J0690; J1100; J1580; J1650; J2250; J2270; J2405; J3010; J3370; J7030; J7050; J7120

== ENCOUNTER 2017-03-16 11:06 | Emergency (ER) | payer OTHER ==
[~2017-03-16] VITALS: Ht 165.1 cm; Wt 94.7 kg
[~2017-03-16 11:06] MED LIST changes: +ASPI-146 PO; +COMMODE 3-IN-11 MIS; +ENOX40IN SQ; -MOBI15TA PO; +NORC5TAB PO; +WALKER WHEELS/F1 MIS
[2017-03-16 11:19] VITALS: BP 152/88; PULSE 93; RESP 16; TEMP 98.7; O2SAT 95
[2017-03-16] MEDS ORDERED: NYSTCRE29 TOPICAL (12:02)
--- NOTE | 2017-03-16 12:03 | PD ---
HPI Chief Complaint: Skin Problem Time Seen by Provider: 11:28 Travel History International Travel<30 days: No Contact w/Intl Traveler<30days: No Traveled to known affect area: No History of Present Illness HPI Patient is a 71-year-old female presenting to emergency department for evaluation of a rash to her right lower abdomen, upper thigh. She noticed it last night, she states it's itching. Symptom onset was fairly sudden. She had hip surgery one month ago with Dr. Benjamin. She has not had any issues regarding postoperative care or infection. She states that the tape that is on the incision is supposed to be trimmed back as it peels off. She is unable to do so due to a large pannus. She reports following postoperative instructions. She has no other complaints at this time. She denies any pain, fever, chills , drainage, warmth. PFSH Past Medical History Hx Anticoagulant Therapy: Yes (asa 325mg) Cancer: No Cardiovascular Problems: No Diabetes: No Diminished Hearing: No Endocrine: No Gastrointestinal Disorders: No Genitourinary: No Hepatitis: No Hiatal Hernia: No Hypertension: No Immune Disorder: No Medical other: No Musculoskeletal: Yes (OSTEOARTHRITIS L THUMB, ARTHRITIS IN R KNEE) Neurologic: No Psychiatric: No Reproductive: No Respiratory: No Immunizations Current: Yes Thyroid Disease: No ?: Not Menopausal: Yes Past Surgical History Abdominal Surgery: Yes (APPENDECTOMY, CHOLECYSTECTOMY) AICD: No Appendectomy: Yes Cholecystectomy: Yes Joint Replacement: No Oral Surgery: Yes (TONSILLECTOMY, DENTAL) Pacemaker: No Tonsillectomy: Yes Social History Alcohol Use: No Tobacco Use: Yes (1 ppd) Substance Use: No Allergies-Medications (Allergen,Severity, Reaction): Coded Allergies: No Known Allergies (Verified Allergy, Unknown, 03/16/17) Reported Meds & Prescriptions Reported Meds & Active Scripts Active Ecotrin Regular Strength (Aspirin) 325 Mg Tabdr 325 Mg PO DAILY Start Aspirin after Lovenox is completed. [place] (Hydrocodone-Acetaminophen) 5 Mg-325 Mg Tab 1-2 Tab PO Q4H PRN Walker with Front Wheels (Device) 1 Mis Mis Ea .ROUTE DIRECTED Commode 3-in-1 (Device) 1 Mis Mis Ea .ROUTE DIRECTED Review of Systems Except as stated in HPI: all other systems reviewed are Neg Skin: Positive Rash, Positive Itching Physical Exam Narrative GENERAL: Overweight, well-developed, alert female. Resting comfortably in no acute distress. SKIN: Warm and dry. Hyperpigmented plaques to right upper thigh, abdominal fold. No significant erythema, no drainage noted. Surgical incision is well- healed, well approximated without signs or symptoms of infection. There is a surgical tape that is partially covering incision. HEAD: Normocephalic. EYES: No scleral icterus. No injection or drainage. NECK: Supple, trachea midline. No JVD or lymphadenopathy. CARDIOVASCULAR: Regular rate and rhythm without murmurs, gallops, or rubs. RESPIRATORY: Breath sounds equal bilaterally. No accessory muscle use. GASTROINTESTINAL: Abdomen soft, non-tender, nondistended. MUSCULOSKELETAL: No cyanosis, or edema. BACK: Nontender without obvious deformity. No CVA tenderness. Data Data Last Documented VS Vital Signs Date Time Temp Pulse Resp B/P (MAP) Pulse Ox O2 Delivery O2 Flow Rate FiO2 18 11:19 98.7 93 16 152/88 (109) 95 [facility] Medical Decision Making Medical Screen Exam Complete: Yes Emergency Medical Condition: Yes Interpretation(s) Vital Signs Date Time Temp Pulse Resp B/P (MAP) Pulse Ox O2 Delivery O2 Flow Rate FiO2 18 11:19 98.7 93 16 152/88 (109) 95 Differential Diagnosis Cellulitis versus tinea versus contact dermatitis versus other Narrative Course Patient is a 71-year-old female presenting to emergency reevaluation of an itchy rash to her abdomen and upper thigh that she noticed yesterday. Rash appears consistent with contact dermatitis however due to the large pannus patient will be treated with nystatin/triamcinolone due to possibility of a candidal infection. She was encouraged to apply twice daily, she was further encouraged to continue postoperative wound care instructions. She is encouraged to follow-up with her primary doctor return to emergency department for any new or worsening symptoms. Patient verbalizes understanding of these instructions. Patient is stable for discharge. Diagnosis Primary Impression: Dermatitis Referrals: Primary Care Physician 3 days Patient Instructions: Contact Dermatitis (ED), General Instructions Additional Instructions: Follow-up with your primary doctor Use medications as directed Follow-up with your orthopedic surgeon as scheduled Return to emergency department for any new or worsening symptoms Med/Other Pt SpecificInfo: Prescription(s) given Scripts Nystatin-Triamcinolone (Nystatin-Triamcinolone) 100,000-0.1 Unit/Gm Cream 1 APPLIC TOPICAL BID for Infection, #60 GM 0 Refills Prov: Sonia Coyne 03/16/17 Disposition: 01 DISCHARGE HOME Condition: Stable Sonia Coyne Mar 16, 2017 12:02
== END 2017-03-16 12:07 | disposition home or self-care (01) ==
LOC: PHEFT 11:06
DX: L30.9 Dermatitis, unspecified (principal); F17.200 Nicotine dependence, unspecified, uncomplicated
CPT/HCPCS: 99283

== ENCOUNTER 2018-03-05 05:25 | Inpatient (IN) ==
[2018-03-05] MEDS ORDERED: Metoprolol Tartrate 25 MG Tablet PO ONE (05:53)
[2018-03-05] MEDS ORDERED: Chlorhexidine Gluconate 2% 1 Pack (2 Cloths) TOPICAL ONE (05:53)
[2018-03-05] MEDS ORDERED: Dexamethasone Inj 20 MG/5 ML Vial IV.PUSH ONE (05:54)
[2018-03-05] MEDS ORDERED: Sodium Chlor 0.9% Inj 500 ML IV.SIG SCH (06:00)
[2018-03-05] MEDS ORDERED: ceFAZolin 2 GM Premix Inj 2 GM/50 ML PIGGYBACK IV.SIG SCH (06:00)
[2018-03-05] MEDS ORDERED: Chlorhexidine 4% Topical 120 APPLIC/120 ML Bottle TOPICAL SCH (06:00)
[2018-03-05] MEDS ORDERED: Vancomycin Inj 1,000 MG in Sodium Chlor 0.9% Inj 250 ML IV.SIG SCH (06:00)
[2018-03-05] MEDS ORDERED: fentaNYL Citrate Inj 250 MCG/5 ML Ampul ONE (06:25)
[2018-03-05] MEDS ORDERED: Famotidine PF Inj 20 MG/2 ML Vial ONE (06:25)
[2018-03-05] MEDS ORDERED: fentaNYL Citrate Inj 100 MCG/2 ML Ampul ONE (06:25)
[2018-03-05] MEDS ORDERED: TRANEXAMIC ACID IV.SIG SCH ×2 (07:00→10:00)
[2018-03-05] MEDS ORDERED: SODIUM CHLOR 0.9% IV.SIG SCH ×2 (07:00→10:00)
[2018-03-05] MEDS ORDERED: Sodium Chlor 0.9% Inj 40 ML, Bupivacaine Liposo PF 1.3% Inj 20 ML P-ARTICULR SCH ×2 (07:00)
[2018-03-05] MEDS ORDERED: Bisacodyl 10 MG Supp RECTAL PRN (08:27)
[2018-03-05] MEDS ORDERED: Zolpidem Tartrate 5 MG Tablet PO PRN (08:27)
[2018-03-05] MEDS ORDERED: Morphine Inj 4 MG/ML Vial IV.PUSH PRN (08:27)
[2018-03-05] MEDS ORDERED: Aluminum/Magnesium/Simethacone Susp 30 ML UDC PO PRN (08:27)
[2018-03-05] MEDS ORDERED: Post-op Orders (for Pharmacy) OTHER STA (08:27)
--- NOTE | 2018-03-05 08:31 | P.OP ---
- Preoperative Diagnosis (1) Osteoarthritis of left hip - Postoperative Diagnosis (1) Osteoarthritis of left hip Date of procedure: 03/05/18 Procedure: Left total hip arthroplasty Anesthesia: GETA Surgeon: Jf Sanchez MD Psychotherapist: RUDI Phipps The surgical procedure was assisted by my Advanced Registered Nurse Practitioner. My PAINTER ROUGH presence was necessary throughout this case for the manipulation and positioning of the surgical extremity. My PAINTER ROUGH was assisting me throughout the duration of this procedure. The skill set of an Advance Registered Nurse Practitioner was medically necessary to complete this procedure. During the surgical case, the surgical nurse practitioner was working at the back table and the Advance Registered Nurse Practitioner was directly assisting me. Operation and Findings: IMPLANT DESCRIPTION ([employer]): 1. [place] Gription Cup, acetabular size 50. 2. [place] AltrX polyethylene, neutral. 4. [place] femoral stem size 9, no collar, KLA high offset. 5. Femoral head/neck metal, 32, +1. ESTIMATED BLOOD LOSS: 250 cc. JUSTIFICATION FOR PROCEDURE: The patient has end-stage osteoarthritis to the hip. There is an attached conservative measures pathway form in the chart that describes the nonoperative measures that were undertaken prior to consideration of surgical management. The patient understood the risks and benefits of surgical management. See my office notes for further details. PROCEDURE: The patient was brought back to the operative theatre. Adequate anesthesia was obtained. The patient received intravenous vancomycin and Ancef. The patient was carefully placed on the operative table. The lower extremity was prepped and draped in the usual sterile fashion. Fluoroscopic images were obtained. We made a standard anterior incision over the hip. We dissected through the TFL fascia, exposing the anterior capsule. Arthrotomy was performed in a T-shaped fashion. The capsule was tagged with a #2 FiberWire. End-stage arthritis was identified. Osteotomy was performed through the femoral neck exposing the acetabulum. Remnants of the labrum were resected and osteophytes were removed. We sequentially reamed the acetabulum. We trialed the hip and placed the final cup into position. This was done under fluoroscopic guidance to obtain the appropriate inclination and anteversion. A manhole cover was placed into the acetabular component. We then placed the final polyethylene into position and confirmed that it was well seated. Capsular attachments on the calcar and the inner aspect of the greater trochanter were resected. On the proximal aspect of the femur we used a rongeur , box osteotome, canal finder, sequential broaches and lateralizing rasp. We calcar planed the proximal femur. Then thoroughly irrigated the wound. We trialed the hip with the appropriate size stem. We placed the final stem in to position and trialed again. The hip was stable while it was externally rotated 70 degrees when the leg was lowered to the floor. The final head was applied, and final fluoroscopic images were obtained. The wound was thoroughly irrigated again. Interarticular injection of liposomal bupivacaine was given. The capsule was closed with #2 FiberWire and #1 Vicryl. The deep fascia was closed with a #2 Stratafix, followed by 2-0 Vicryl in the skin and Dermabond dressing. Postop plan is to weight-bear as tolerated. DVT prophylaxis will be performed with SCDs, PEGGY hose, early mobilization, and aspirin.
--- NOTE | 2018-03-05 08:53 | XR ---
EXAM DATE: 03/05/2018 8:50 AM EST AGE/SEX: 72 years / Female INDICATIONS: Left total hip arthroplasty. CLINICAL DATA: This is the patient's initial encounter. Patient reports that signs and symptoms have been present for 1 day and indicates a pain score of Nonresponsive. MEDICAL/SURGICAL HISTORY: Non-responsive. Non-responsive. COMPARISON: No prior exams available for comparison. FINDINGS: Left total hip replacement is noted. The prosthesis appears to be in good position. CONCLUSION: Status post left total hip arthroplasty with prosthesis in good position. Electronically signed by: Segun Villanueva MD Board Certified Radiologist 03/05/2018 8:51 AM EST
[2018-03-05] MEDS: Sod Chloride 0.9% Inj 1,000 ML IV.CONT SCH (09:08)
--- NOTE | 2018-03-05 09:38 | XR ---
EXAM DATE: 03/05/2018 9:36 AM EST AGE/SEX: 72 years / Female INDICATIONS: Post op left hip. CLINICAL DATA: This is the patient's initial encounter. Patient reports that signs and symptoms have been present for 1 day and indicates a pain score of Nonresponsive. MEDICAL/SURGICAL HISTORY: None. . Right hip replacement. COMPARISON: [facility] [place], HIP RIGHT (AP&LAT 2/3VWS) W AP PELVIS, 02/13/2017. . FINDINGS: Status post placement of a left hip prosthesis. The prosthesis appears to be in good position and ali gnment with the bony structures. The bony structures are grossly intact. CONCLUSION: Good position and alignment of the left hip prosthesis. Electronically signed by: Albert eVnegas MD Board Certified Radiologist 03/05/2018 9:37 AM EST
[2018-03-05] MEDS: Multivitamin/Minerals Therapeutic Tablet PO SCH ×2 (11:00→20:23)
[2018-03-05] MEDS: Senna/Docusate Sodium 8.6/50 MG Tablet PO SCH ×2 (11:00→20:23)
[2018-03-05] MEDS: ceFAZolin 1 GM Premix Inj 1 GM/50 ML PIGGYBACK IV.SIG SCH ×2 (12:59→20:27)
--- NOTE | 2018-03-05 16:24 | P.DCO ---
- Physical Therapy Physical Therapy: Gait training, Transfer training, bed to chair Hip: Total hip Left Lower Extremity Weight Bearing: Weight bearing as tolerated Left Lower Extremity Range of Motion: Active ROM - Nursing Dressing changes: Do not change dressing Additional instructions: First dressing change in the office - Certification Need for Home Health services: I have seen patient Tracey Diamond on 03/05/18. My clinical findings support the need for the requested home health care services because: Need for Home Health Services: Limited ability to care for self, High risk of falls Homebound Certification: I certify that my clinical findings support that this patient is homebound because: Homebound Certification: Post-op weakness, Unsteady gait/balance
[2018-03-06] MEDS: ceFAZolin 1 GM Premix Inj 1 GM/50 ML PIGGYBACK IV.SIG SCH (01:58)
[2018-03-06] MEDS: Sod Chloride 0.9% Inj 1,000 ML IV.CONT SCH (01:59)
[2018-03-06 04:55] LABS: Hematocrit 33.3 % (35.0-46.0); Hemoglobin 11.5 gm/dL (11.6-15.3)
--- NOTE | 2018-03-06 07:34 | P.PNOP ---
Subjective Interval history: The patient is resting comfortably in bed in no acute distress. The patient reports minimal pain to the left hip. The patient states she does want to be discharged home today with home health. Physical Exam Vital signs: Vital Signs 03/05/18 08:49 03/05/18 09:00 03/05/18 09:15 Temperature 97.6 F Pulse Rate 97 H 81 71 Respiratory Rate 14 14 14 Blood Pressure 141/69 H 131/63 135/64 Pulse Oximetry 97 97 99 03/05/18 09:30 03/05/18 09:45 03/05/18 09:55 Temperature 98.1 F Pulse Rate 74 65 Respiratory Rate 14 14 Blood Pressure 134/69 137/68 Pulse Oximetry 100 100 100 03/05/18 12:00 03/05/18 16:00 03/05/18 19:10 Temperature 97.2 F L 97.6 F 97.9 F Pulse Rate 72 71 63 Respiratory Rate 16 16 17 Blood Pressure 127/67 135/72 122/58 L Pulse Oximetry 99 98 96 03/05/18 23:51 03/06/18 03:54 Temperature 98.1 F 97.6 F Pulse Rate 57 L 84 Respiratory Rate 16 17 Blood Pressure 119/58 L 119/64 Pulse Oximetry 96 97 Intake & Output 03/05/18 03/06/18 03/06/18 18:59 06:59 18:59 Intake Total 1850.19 / 1850.19 550 / 550 Output Total 250 / 250 Balance 1600.19 / 1600.19 550 / 550 Weight 81.9 kg 81.7 kg Intake: IV 458.19 / 458.19 50 / 50 Cyklokapron Inj 819 MG In NS 108.19 / 108.19 Inj 100 ML @ 200 mls/hr IV.SIG ONCE [facility] Rx#:[id number] Vancomycin Inj 1,000 MG In NS 250 / 250 Inj 250 ML @ 250 mls/hr IV.SIG COUNTER CLERK [facility] Rx#:[id number] Ancef 1 GM Premix Inj 1 gm In 50 / 50 50 / 50 50 ml @ 100 mls/hr IV.SIG Q6H [facility] Rx#:[id number] Ancef 2 GM Premix Inj 2 gm In 50 / 50 50 ml @ 100 mls/hr IV.SIG COUNTER CLERK [facility] Rx#:[id number] Oral 500 / 500 Anesthesia Amount 1392 / 1392 Output: Estimated Blood Loss 250 / 250 Other: # Voids 2 Date of Last Bowel Movement 03/05/18 03/05/18 # Bowel Movements 1 Narrative: The patient's dressing is clean, dry, and intact. EHL/TA/G are intact. 2+ pedal pulse. The patient's calf is soft and nontender. Sensation is intact to light touch distally. Results - Labs CBC & Chem 7: 03/06/18 04:10 Laboratory Results - last 24 hr 03/06/18 04:10 Hgb 11.5 L Hct 33.3 L - Imaging Impressions Hip X-Ray 03/05/18 00:00 CONCLUSION: Status post left total hip arthroplasty with prosthesis in good position. Hip X-Ray 03/05/18 08:27 CONCLUSION: Good position and alignment of the left hip prosthesis. - Procedures Left total hip arthroplasty Assessment and Plan - Problem List (1) Osteoarthritis of left hip Code(s): M16.12 - Unilateral primary osteoarthritis, left hip Status: Acute (2) Status post total hip replacement, left Code(s): Z96.642 - Presence of left artificial hip joint Status: Acute - Assessment and Plan POD #1: Left total hip arthroplasty 1. Weightbearing as tolerated on left lower extremity. 2. Aspirin 81 mg twice daily for DVT prophylaxis. 3. Ice as needed for swelling. 4. Stable per ortho for discharge to home health today. 5. The patient will follow up with Dr. Sanchez and/or RUDI Evans as previously scheduled.
[2018-03-06] MEDS ORDERED: Dexamethasone Inj 20 MG/5 ML Vial IV.PUSH ONE (08:00)
[2018-03-06 08:30] VITALS: BP 125/65; PULSE 72; RESP 14; TEMP 98; O2SAT 98
[2018-03-06] MEDS: Multivitamin/Minerals Therapeutic Tablet PO SCH (09:08)
[2018-03-06] MEDS: Senna/Docusate Sodium 8.6/50 MG Tablet PO SCH (09:08)
--- NOTE | 2018-03-07 15:03 | P.DS ---
Date of admission: 03/05/18 08:27 Primary care physician: Lavelle Antoine Attending physician on discharge: Jf Sanchez Anticipated date of discharge: 03/06/18 Brief History from admission: The patient was admitted to the hospital for severe osteoarthritis of the left hip to have a left total hip arthroplasty. DS: Diagnosis - Discharge Diagnosis (1) Osteoarthritis of left hip Status: Acute (2) Status post total hip replacement, left Status: Acute DS: Summary Hospital Course: The patient was admitted to the hospital for severe osteoarthritis of the left hip to have a left total hip arthroplasty. The patient's surgery went well with no complication. The patient is on a [regular] diet. The patient's DVT prophylaxis includes use of aspirin 81 mg twice daily. The patient is weightbearing as tolerated. The patient was discharged [home with home health] and will follow up in the office with Dr. Sanchez and/or RUDI Evans as previously scheduled. - Time Spent with Patient Total time spent providing and/or coordinating discharge services: Greater than 30 minutes - Quality: VTE Deep Vein Thrombosis/Pulmonary Embolism Present on Admission: No Exam Vital signs: Intake & Output 03/06/18 03/07/18 03/07/18 18:59 06:59 18:59 Intake Total 1000 / 1000 Balance 1000 / 1000 Intake: IV 1000 / 1000 NS Inj 1,000 ML @ 80 mls/hr IV. 1000 / 1000 CONT .[id number] [facility] Rx#:[id number] Narrative: The patient's dressing is clean, dry, and intact. EHL/TA/G are intact. 2+ pedal pulse. The patient's calf is soft and nontender. Sensation is intact to light touch distally. Results Procedures completed during hospitalization: Left total hip arthroplasty - Impressions ITS Impressions Hip X-Ray 03/05/18 08:27 CONCLUSION: Good position and alignment of the left hip prosthesis. Discharge Plan - Discharge Disposition Patient Disposition: /Home Health Service - Discharge Order Discharge Orders: Discharge Order (Routine); Ordered 03/05/18 Ordered By: Volodymyr Stewart - Discharge Details Anticipated Discharge Date: 03/06/18 - Physicians Team Primary Care Provider: Lavelle Antoine Attending Provider: Jf Sanchez Other Providers: Nurse Oncall,Agency ; [employer] - Rxs /Orders / Referrals /Forms Prescriptions: No Action No Known Home Medications Ambulatory Orders / Order Sets / DME: Adjustable Commode 3-in-1 (1 each) (Routine) Location: Determined by Patient Ordered By: Volodymyr Stewart Walker With Front Wheels (1 each) (Routine) Location: Determined by Patient Ordered By: Volodymyr Stewart Referrals: Nurse Solution Engineer [Outside] - See Instructions Jf Sanchez MD [Physician] - See Instructions (f/u in the office as previously scheduled with Dr. Sanchez or Leonides Stewart, MORTGAGE ANALYST) Lavelle Antoine MD [Primary Care Provider] - See Instructions - Discharge Instructions Patient Printed Instructions: How to Use an Incentive Spirometer (DC), How to Choose and Use a Walker (GEN), Total Hip Replacement (DC) Additional Instructions: Full weight bearing to Left Lower extremity DO not change dressings call Dr Sanchez if drainage or ordor noted Home Health arranged by Dr Pierce office prior to admission Patient has pain meds and will be taking Aspirin 81 mg as directed by Dr Sanchez prior to surgery Follow up appointment with Dr Sanchez on 03/20 at 8:45 am at [facility] - Post Discharge Care Plan Care Plan Goals: Your Health Problems: Goals to Promote Your Health: * To prevent worsening of your condition * To maintain your health at the optimal level Directions to Meet Your Goals: * Take your medications as prescribed * Follow your dietary instruction * Follow activity as directed * Keep your appointments as scheduled * Take your immunizations and boosters as scheduled * If your symptoms worsen call your PCP * If no PCP go to Urgent Care or Emergency Room Smoking is dangerous to your health. Avoid second hand smoke. You may reach the 24-hour crisis hotline for domestic abuse at .
== END 2018-03-06 09:49 | disposition home health service (06) | DRG 470 ==
LOC: HSDC 05:25 → EDSTATUS 07:00 → HSDI 08:27 → N06 10:04
PROVIDERS: ADMIT Orthopaedic Surgery; ATTEND Orthopaedic Surgery
CPT/HCPCS: 73502; 76000; 85014; 85018; 86850; 86900; 86901; 94150; 97110; 97116; 97162; C1776; C9290; J0131; J0690; J1100; J1580; J2250; J2405; J3010; J3370; J7030; J7050; J7120; J8501